=== PATIENT | male | born 1950 | race Asian ===

== ENCOUNTER 2020-08-24 08:26 | Outpatient (CLI) | payer MEDICARE, OTHER | END 2020-08-24 08:27 | disposition short-term general hospital (02) | LOC: EMS 08:26 | DX: R07.9 Chest pain, unspecified (principal) | CPT/HCPCS: A0425; A0429 ==

== ENCOUNTER 2021-02-26 08:00 | Outpatient (CLI) | payer MEDICARE ==
--- NOTE | 2021-02-26 16:41 | XRAY Report ---
PROCEDURE: Hand 3 View LT INDICATIONS: LEFT HAND PAIN TECHNIQUE: 3 views of the hand(s) acquired. COMPARISON: None FINDINGS: Bones: No fractures or dislocations. There is mild osteopenia. Mild osteoarthritic changes are noted throughout left hand and wrist joints more prominent at first CMC joint. No suspicious bony lesions. Soft tissues: No suspicious soft tissue calcifications. 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 No fracture or dislocation. Reviewed by: Harley Jones MD on 02/26/2021 4:39 PM PDT Approved by: Harley Jones MD on 02/26/2021 4:39 PM PDT Station ID: [id number]
== END 2021-02-26 23:59 | disposition home or self-care (01) ==
LOC: DI.S 08:00
PROVIDERS: ATTEND Physician Assistant Medical
DX: M19.042 Primary osteoarthritis, left hand (principal); M19.032 Primary osteoarthritis, left wrist; M85.842 Other specified disorders of bone density and structure, left hand

== ENCOUNTER 2022-03-19 11:17 | Outpatient (CLI) | payer OTHER | END 2022-03-19 11:18 | disposition critical access hospital (66) | LOC: EMS 11:17 | DX: R10.32 Left lower quadrant pain (principal); R11.0 Nausea | CPT/HCPCS: A0425; A0427 ==

== ENCOUNTER 2022-03-19 11:51 | Emergency (ER) | payer MEDICARE, OTHER ==
[2022-03-19] MEDS ORDERED: METOCLOPRAMIDE 10 MG/2 ML VIAL IVP STA (11:58)
[2022-03-19] MEDS ORDERED: SODIUM CHLORIDE 0.9% 1,000 ML IV STA (11:58)
--- NOTE | 2022-03-19 12:14 | ED Physician Documentation ---
PD HPI ABD PAIN - Stated complaint Stated Complaint: ABD PX - Chief complaint Chief Complaint: Abd Pain - History obtained from History obtained from: Patient - Additional information Additional information: 71-year-old gentleman with chronic kidney disease, diabetes, hypertension developed sudden onset left flank and left lower abdominal pain around 9 AM. He is never had this before. No history of renal colic. Brought in by ambulance, prior to arrival received 150 mcg of fentanyl which did make him quite nauseous which she is persistently nauseous despite 4 mg of Zofran on route. Review of Systems Ten Systems: 10 systems reviewed and negative Constitutional: reports: Reviewed and negative Nose: reports: Reviewed and negative Throat: reports: Reviewed and negative Cardiac: reports: Reviewed and negative Respiratory: reports: Reviewed and negative PD PAST MEDICAL HISTORY - Present Medications Home Medications: Ambulatory Orders Medication Instructions Recorded Confirmed Ondansetron Odt [Zofran] 4 mg TL Q6H PRN #10 tablet 03/19/22 Oxycodone HCl/Acetaminophen 1 - 2 each PO Q6H PRN #20 tablet 03/19/22 [Percocet 5-325 mg Tablet] Tamsulosin [Flomax] 0.4 mg PO DAILY #14 cap 03/19/22 - Allergies Allergies/Adverse Reactions: Allergies Allergy/AdvReac Type Severity Reaction Status Date / Time No Known Drug Allergies Allergy Verified 03/19/22 12:09 PD ED PE NORMAL - Vitals Vital signs reviewed: Yes - General General: Alert and oriented X 3, Other (Holding a emesis bag but now not in pain.) - HEENT HEENT: PERRL, EOMI - Neck Neck: Supple, no meningeal sign, No bony TTP - Cardiac Cardiac: RRR, No murmur - Respiratory Respiratory: No respiratory distress, Clear bilaterally - Abdomen Abdomen: Normal bowel sounds, Soft, Non tender - Back Back: No CVA TTP - Derm Derm: Normal color, Warm and dry - Extremities Extremities: No edema - Neuro Neuro: Alert and oriented X 3, Normal speech Results - Vitals Vitals: Vital Signs - 24 hr 03/19/22 03/19/22 03/19/22 12:03 14:08 15:13 Temperature 36.7 C Heart Rate 59 L 64 68 Respiratory 18 18 18 Rate Blood Pressure 203/97 H 180/97 H 172/90 H O2 Saturation 98 100 100 Oxygen O2 Source Room air - Labs Labs: Laboratory Tests 03/19/22 03/19/22 03/19/22 12:08 12:08 12:26 WBC 7.1 RBC 4.11 L Hgb 13.1 L Hct 38.5 L MCV 93.7 MCH 31.9 H MCHC 34.0 RDW 13.3 Plt Count 114 L MPV 10.5 Neut # (Auto) 4.9 Lymph # (Auto) 1.2 L [place] # (Auto) 0.9 Eos # (Auto) 0.1 Baso # (Auto) 0.1 Absolute Nucleated RBC 0.00 Nucleated RBC % 0.0 Sodium 138 Potassium 4.2 Chloride 109 Carbon Dioxide 22 Anion Gap 7.0 BUN 39 H Creatinine 2.9 H Estimated GFR (MDRD) 21 L Glucose 172 H Calcium 9.1 Total Bilirubin 0.7 AST 27 ALT 29 Alkaline Phosphatase 99 Total Protein 7.4 Albumin 3.4 Globulin 4.0 Albumin/Globulin Ratio 0.9 L Lipase 48 Urine Color YELLOW Urine Clarity CLEAR Urine pH 6.0 Ur Specific [place] >=1.030 H Urine Protein >=300 H Urine Glucose (UA) 250 H Urine Ketones NEGATIVE Urine Occult Blood MODERATE H Urine Nitrite NEGATIVE Urine Bilirubin NEGATIVE Urine Urobilinogen 0.2 (NORMAL) Ur Leukocyte Esterase NEGATIVE Urine RBC 6-10 H Urine WBC 0-3 Ur Squamous Epith Cells RARE Squamous Urine Bacteria Rare Urine Casts 0-2 Granular Casts Ur Microscopic Review INDICATED Urine Culture Comments NOT INDICATED - Rads (name of study) CT KUB Radiology: EMP read contemporaneously (1. A 7 x 6 x 5 mm stone obstructs the proximal left ureter resulting in mild left hydronephrosis. 2. Small nonobstructing left lower pole renal stone. 3. Cholelithiasis. 4. Atherosclerosis. ) PD MEDICAL DECISION MAKING - ED course ED course: The was [facility] and [facility] 2.7 most recently, so basically the same today. He was comfortable after a couple of doses of medications. NSAIDs were held given his underlying kidney disease. He plans to follow-up with urologist at [place] Departure - Departure Disposition: Home, Self Care Clinical Impression: Renal colic on left side Condition: Good Record reviewed to determine appropriate education?: Yes Instructions: ED Stone Renal W Colic Prescriptions: Tamsulosin [Flomax] 0.4 mg PO DAILY #14 cap Oxycodone HCl/Acetaminophen [Percocet 5-325 mg Tablet] 1 - 2 each PO Q6H PRN #20 tablet PRN Reason: pain Ondansetron Odt [Zofran] 4 mg TL Q6H PRN #10 tablet PRN Reason: Nausea / Vomiting Comments: Arturo, it was a pleasure to meet you. We found that the cause of your pain today was a 7 mm stone in the left proximal ureter. Thankfully we were able to control your pain and show that your kidney function is not much worse than normal. You will need to follow-up with urologist, [facility]. I sent your prescriptions electronically to the [facility] in [place]. Return for new or worsening symptoms. My narcotics instructions I am prescribing a short course of narcotic pain medication for you. These are potentially dangerous and addictive medications that should be used carefully. These medications may constipate you. Take an hlhc-vax-yjlefwj stool softener (docusate) twice daily with plenty of water while taking these medications. If you go 24 hours without a bowel movement, take [id number] miralax, per package instructions. Do not drink or drive while taking these medications. If you received narcotic or sedating medications while in the emergency department, do not drive for 24 hours. Store this medication in a safe, secure place and out of reach of children. It is a violation of federal law to give or sell this medication to another person or to use in a manner other than prescribed. The ED will not refill narcotic prescriptions, including prescriptions lost or stolen. To dispose of unwanted medications: 1. [facility] at [address] [facility] in [place] has a medication drop box. They accept prescription medications (in pill form) Wednesday through Wednesday 9:00 a.m. to 5:00 p.m. 2. The [facility] accepts prescription medications (in pill form only) for disposal year round. Call for more information. 3. Contact the [facility] for the next [facility] sponsored prescription drug collection event. , [phone], or [phone]; Note that many narcotic pain relievers also contain Tylenol/acetaminophen. Please ensure that your total dose of acetaminophen from all sources does not exceed 3 g (3000 mg) per day. Discharge Date/Time: 03/19/22 15:13
[2022-03-19 12:17] LABS: BASOPHILS # (AUTO) 0.1 10^3/uL (0.0-0.1); BASOPHILS % (AUTO) 1.1 %; EOSINOPHILS # (AUTO) 0.1 10^3/uL (0.0-0.7); EOSINOPHILS % (AUTO) 1.8 %; HCT - HEMATOCRIT 38.5 % (42.0-52.0); HGB - HEMOGLOBIN 13.1 g/dL (14.0-18.0); LYMPHOCYTES # (AUTO) 1.2 10^3/uL (1.5-3.5); LYMPHOCYTES % (AUTO) 16.5 %; MEAN CORPUSCULAR HEMOGLOBIN 31.9 pg (27.0-31.0); MEAN CORPUSCULAR VOLUME 93.7 fL (80.0-94.0); MEAN PLATELET VOLUME 10.5 fL (7.4-11.4); MONOCYTES # (AUTO) 0.9 10^3/uL (0.0-1.0); MONOCYTES % (AUTO) 11.9 %; NEUTROPHILS # (AUTO) 4.9 10^3/uL (1.5-6.6); NEUTROPHILS % (AUTO) 68.4 %; PLT - PLATELET COUNT 114 10^3/uL (130-450); RED BLOOD COUNT 4.11 10^6/uL (4.70-6.10); RED CELL DISTRIBUTION WIDTH 13.3 % (12.0-15.0); WHITE BLOOD COUNT 7.1 x10^3/uL (4.8-10.8)
[2022-03-19 12:27] LABS: ALBUMIN 3.4 g/dL (3.2-5.5); ALBUMIN/GLOBULIN RATIO 0.9 (1.0-2.2); BILIRUBIN,TOTAL 0.7 mg/dL (0.2-1.0); CALCIUM 9.1 mg/dL (8.5-10.3); CREATININE 2.9 mg/dL (0.6-1.2); POTASSIUM 4.2 mmol/L (3.5-5.0); TOTAL PROTEIN 7.4 g/dL (6.7-8.2)
[2022-03-19 12:33] LABS: BILIRUBIN,URINE NEGATIVE (NEGATIVE); GLUCOSE, URINE (UA) 250 mg/dL (NEGATIVE); KETONES,URINE (UA) NEGATIVE (NEGATIVE); LEUKOCYTE ESTERASE, URINE NEGATIVE (NEGATIVE); NITRITE,URINE NEGATIVE (NEGATIVE); OCCULT BLOOD,URINE MODERATE (NEGATIVE); PROTEIN,URINE >=300 mg/dL (NEGATIVE); UROBILINOGEN,URINE 0.2 (NORMAL) E.U./dL (NORMAL)
[2022-03-19 12:36] LABS: CLARITY,URINE CLEAR (CLEAR)
[2022-03-19 12:39] LABS: BACTERIA,URINE Rare /HPF (None Seen); CASTS, URINE 0-2 Granular Casts /LPF; SQUAMOUS EPITHELIAL CELL,UR RARE Squamous (<= Few); WBC,URINE 0-3 /HPF (0-3)
[2022-03-19] MEDS ORDERED: HYDROmorphone 1 MG/ML CARPUJECT IVP STA ×2 (13:11→14:56)
[2022-03-19] MEDS ORDERED: ONDANSETRON 4 MG/2 ML VIAL IVP STA (13:11)
--- NOTE | 2022-03-19 13:49 | CT Report ---
PROCEDURE: Abdomen/Pelvis WO INDICATIONS: L flank pain TECHNIQUE: Noncontrast 5 mm thick sections acquired from the diaphragms to the symphysis. 5 mm coronal and sagi ttal reformats were then performed. For radiation dose reduction, the following was used: automated exposure control, adjustment of mA and/or kV according to patient size. COMPARISON: None. FINDINGS: Image quality: Excellent. ABDOMEN: Lung bases: Lung bases are clear. Heart size is normal. Solid organs: Liver and spleen are normal in size. Gallbladder contains a calcified stone in the ga llbladder neck. There is no gallbladder wall thickening or fluid around the gallbladder. Pancreas is normal in contours. No adrenal nodules. Kidneys are normal in size. Mild left hydronephrosis. Ther e is an obstructing proximal left ureteral stone measuring approximately 7 x 6 x 5 mm. There is a 1 m m nonobstructing lower pole left renal stone. There is minimal left perinephric stranding. Peritoneum and bowel: Unenhanced bowel loops demonstrate normal wall thickness and caliber. No free fluid or air. Nodes and vessels: No retroperitoneal or mesenteric adenopathy by size criteria. Aorta and inferior vena cava are normal in caliber. There is dense atherosclerotic calcification of the infrarenal abd ominal aorta and right common iliac artery. Miscellaneous: No ventral hernias. PELVIS: Genitourinary: Bladder wall thickness is normal. Miscellaneous: No inguinal hernias or adenopathy. Bones: No suspicious bony lesions. No vertebral body compression fractures. IMPRESSION: 1. A 7 x 6 x 5 mm stone obstructs the proximal left ureter resulting in mild left hydronephrosis. 2. Small nonobstructing left lower pole renal stone. 3. Cholelithiasis. 4. Atherosclerosis. Reviewed by: Mateo Martinez MD on 03/19/2022 1:47 PM PDT Approved by: Mateo Martinez MD on 03/19/2022 1:47 PM PDT Station ID: [id number]
[2022-03-19 15:14] VITALS: BP 172/90
== END 2022-03-19 15:13 | disposition home or self-care (01) ==
LOC: EDUNIT# → ED 11:51
DX: N13.2 Hydronephrosis with renal and ureteral calculous obstruction (principal); R11.0 Nausea; I12.9 Hypertensive chronic kidney disease with stage 1 through stage 4 chronic kidney disease, or unspecified chronic kidney disease; E11.22 Type 2 diabetes mellitus with diabetic chronic kidney disease; N18.9 Chronic kidney disease, unspecified
CPT/HCPCS: 36415; 74176; 80053; 81001; 83690; 85025; 96374; 96375; 96376; 99284; J1170; J2765; 81003; 87086

== ENCOUNTER 2023-01-27 08:00 | Outpatient (CLI) | payer MEDICARE, OTHER ==
--- NOTE | 2023-01-27 15:48 | XRAY Report ---
PROCEDURE: Chest 2 View X-Ray INDICATIONS: ACUTE COUGH TECHNIQUE: 2 views of the chest were acquired. COMPARISON: X-ray chest, 09/23/2010. FINDINGS: Surgical changes and devices: None. Lungs and pleura: No pleural effusions or pneumothorax. Lungs are clear. Mediastinum: Mediastinal contours appear normal. Heart size is normal. Bones and chest wall: No suspicious bony lesions. Overlying soft tissues appear unremarkable. IMPRESSION: No acute cardiopulmonary process. Reviewed by: Primo Seth MD on 01/27/2023 3:46 PM PDT Approved by: Primo Seth MD on 01/27/2023 3:46 PM PDT Station ID: [id number]
== END 2023-01-27 23:59 | disposition home or self-care (01) ==
LOC: DI.S 08:00
PROVIDERS: ATTEND Nurse Practitioner
DX: R05.1 Acute cough (principal)

== ENCOUNTER 2023-06-16 16:11 | Emergency (ER) | payer MEDICARE ==
[2023-06-16 16:27] VITALS: BP 167/89
[2023-06-16 16:35] LABS: BASOPHILS # (AUTO) 0.1 10^3/uL (0.0-0.1); BASOPHILS % (AUTO) 0.8 %; EOSINOPHILS # (AUTO) 0.1 10^3/uL (0.0-0.7); EOSINOPHILS % (AUTO) 2.4 %; HCT - HEMATOCRIT 32.2 % (42.0-52.0); HGB - HEMOGLOBIN 10.4 g/dL (14.0-18.0); LYMPHOCYTES # (AUTO) 0.7 10^3/uL (1.5-3.5); LYMPHOCYTES % (AUTO) 11.8 %; MEAN CORPUSCULAR HEMOGLOBIN 30.1 pg (27.0-31.0); MEAN CORPUSCULAR HGB CONC 32.3 g/dL (32.0-36.0); MEAN CORPUSCULAR VOLUME 93.1 fL (80.0-94.0); MEAN PLATELET VOLUME 9.1 fL (7.4-11.4); MONOCYTES # (AUTO) 0.7 10^3/uL (0.0-1.0); MONOCYTES % (AUTO) 11.1 %; NEUTROPHILS # (AUTO) 4.4 10^3/uL (1.5-6.6); NEUTROPHILS % (AUTO) 73.6 %; PLT - PLATELET COUNT 100 10^3/uL (130-450); RED BLOOD COUNT 3.46 10^6/uL (4.70-6.10); RED CELL DISTRIBUTION WIDTH 13.3 % (12.0-15.0); WHITE BLOOD COUNT 5.9 x10^3/uL (4.8-10.8)
[2023-06-16 16:37] LABS: VBG PH 7.245 (7.31-7.41)
[2023-06-16 16:38] LABS: VBG BASE EXCESS -7.4 mmol/L (-2 - +2); VBG HCO3 19.7 mmol/L (23-28); VBG OXYGEN SATURATION 45.5 % (60-80); VBG PCO2 46.4 mmHg (41-51); VBG PO2 24.9 mmHg (25-47); VBG TOTAL CO2 21.1 mmol/L (24-29)
[2023-06-16 17:00] LABS: ALBUMIN 3.5 g/dL (3.2-5.5); BILIRUBIN,TOTAL 0.5 mg/dL (0.2-1.0); CALCIUM 8.9 mg/dL (8.5-10.3); CREATININE 6.9 mg/dL (0.6-1.3); MAGNESIUM 1.6 mg/dL (1.7-2.3); PHOSPHORUS 5.5 mg/dL (2.5-5.0); POTASSIUM 5.5 mmol/L (3.5-4.5); TOTAL PROTEIN 7.1 g/dL (6.4-8.9)
[2023-06-16] MEDS ORDERED: SODIUM ZIRCONIUM CYCLOSILICATE 5 GM PACKET PO STA (17:39)
--- NOTE | 2023-06-16 17:46 | ED Physician Documentation ---
History of Present Illness - Stated complaint Stated Complaint: LETHARGIC - Chief complaint Chief Complaint: General - History obtained from History obtained from: Patient - Additonal information Additional information: 72-year-old gentleman with chronic kidney disease is being prepared for dialysis. Just had his shunt placed and has not dialyzed yet. He is been feeling somewhat badly and his doctor sent him here to make sure he was not significantly hyperkalemic. PD PAST MEDICAL HISTORY - Past Medical History Cardiovascular: Hypertension Neuro: Other Endocrine/Autoimmune: Type 2 diabetes GI: GI bleed, Ulcers - Past Surgical History Past Surgical History: Yes Cardiovascular: Coronary stent - Present Medications Home Medications: Ambulatory Orders Medication Instructions Recorded Confirmed Ondansetron Odt [Zofran] 4 mg TL Q6H PRN #10 tablet 03/19/22 Oxycodone HCl/Acetaminophen 1 - 2 each PO Q6H PRN #20 tablet 03/19/22 [Percocet 5-325 mg Tablet] Tamsulosin [Flomax] 0.4 mg PO DAILY #14 cap 03/19/22 hydrALAZINE [Apresoline] 10 mg PO TID #30 tablet 06/16/23 - Allergies Allergies/Adverse Reactions: Allergies Allergy/AdvReac Type Severity Reaction Status Date / Time No Known Drug Allergies Allergy Verified 06/16/23 16:22 - Social History Does the pt smoke?: Yes Smoking Status: Current some day smoker - POLST Patient has POLST: No PD ED PE NORMAL - Vitals Vital signs reviewed: Yes - General General: Alert and oriented X 3, No acute distress - Neck Neck: Supple, no meningeal sign - Cardiac Cardiac: RRR, No murmur - Respiratory Respiratory: No respiratory distress, Clear bilaterally - Abdomen Abdomen: Non tender - Neuro Neuro: Alert and oriented X 3, Normal speech - Psych Psych: Normal mood, Normal affect Results - Vitals Vitals: Vital Signs - 24 hr 06/16/23 16:13 Temperature 36.1 C L Heart Rate 62 Respiratory 17 Rate Blood Pressure 167/89 H O2 Saturation 100 Oxygen O2 Source Room air - EKG (time done) 1707 EKG releavant findings:: EKG personally interpreted by author of this note. Relevant findings are: Rate: Rate (enter#) (60) Rhythm: NSR [place]: Normal Intervals: Normal [place] QRS: Normal Ischemia: Normal ST segments - Labs Labs: Laboratory Tests 06/16/23 06/16/23 06/16/23 16:29 16:29 16:29 WBC 5.9 RBC 3.46 L Hgb 10.4 L Hct 32.2 L MCV 93.1 MCH 30.1 MCHC 32.3 RDW 13.3 Plt Count 100 L MPV 9.1 Neut # (Auto) 4.4 Lymph # (Auto) 0.7 L [place] # (Auto) 0.7 Eos # (Auto) 0.1 Baso # (Auto) 0.1 Absolute Nucleated RBC 0.00 Nucleated RBC % 0.0 VBG pH 7.245 L VBG pCO2 46.4 VBG pO2 24.9 L VBG HCO3 19.7 L VBG Total CO2 21.1 L VBG O2 Saturation 45.5 L VBG Base Excess -7.4 L Sodium 137 Potassium 5.5 H Chloride 108 Carbon Dioxide 23 Anion Gap 6.0 BUN 48 H Creatinine 6.9 H Estimated GFR (MDRD) 8 L Glucose 109 H Calcium 8.9 Phosphorus 5.5 H Magnesium 1.6 L Total Bilirubin 0.5 AST 25 ALT 19 Alkaline Phosphatase 104 Total Protein 7.1 Albumin 3.5 Globulin 3.6 Albumin/Globulin Ratio 1.0 PD Medical Decision Making - ED course ED course: Labs reviewed, he is modestly anemic. Has a venous gas that slightly acidemic but with a normal bicarb. Potassium is somewhat high at 5.5 but not alarmingly so. This is without EKG changes. I discussed the case by phone with Dr. Moses, his optical instrument repairer and she recommends a single dose of Lokelma here and will follow-up with him. She also request that we prescribe hydralazine, she is already prescribed the hydralazine but it is coming through mail order and she would like him to get it quicker. Departure - Departure Disposition: 01 Home, Self Care Clinical Impression: Hyperkalemia CKD (chronic kidney disease) Qualifiers: Chronic kidney disease stage: unspecified stage Qualified Code(s): N18.9 - Chronic kidney disease, unspecified Condition: Good Record reviewed to determine appropriate education?: Yes Instructions: Hyperkalemia Dc, Diet Low Potassium Dc Prescriptions: hydrALAZINE [Apresoline] 10 mg PO TID #30 tablet Comments: Your potassium was only a bit up today and I spoke with Dr. Downs and she recommended a dose of Lokelma which is a potassium binder agent. I also sent the prescription for the new blood pressure medication to the [facility] in [place]. Call Dr. Moses tomorrow to arrange close follow-up. Return if worse. Forms: PCP List
[2023-06-16 18:10] VITALS: O2SAT 99
== END 2023-06-16 18:01 | disposition home or self-care (01) ==
LOC: ED 16:11
DX: E87.5 Hyperkalemia (principal); I10 Essential (primary) hypertension; E11.9 Type 2 diabetes mellitus without complications
CPT/HCPCS: 36415; 80053; 82803; 83735; 84100; 85025; 93005; 99283; 99284

== ENCOUNTER 2023-08-12 11:54 | Outpatient (CLI) | payer MEDICARE | END 2023-08-12 11:55 | disposition short-term general hospital (02) | LOC: EMS 11:54 | DX: R11.0 Nausea (principal); R42 Dizziness and giddiness | CPT/HCPCS: A0425; A0427 ==